=== PATIENT | female | born 1995 | race Asian ===

== ENCOUNTER → 2020-09-17 16:10 | Outpatient (CLI) | payer OTHER, SELFPAY ==
--- NOTE | 2020-09-17 16:17 | DI.ECHO.S_ITS ---
[place]---------+ [facility] +---------+ : : [address] : [address] : : : : [id number] : : : : Phone: [phone]+ Echocardiogram Report + + :Name: CHETAN TURNER Study Date: 09/17/2020 Height: 62 in : :[facility] ReadingLocation: Weight: 160 lb : : Gender: Female BSA: 1.7 m2 : :: 1995 Age: 25 yrs BP: 109/72 mmHg: :Reason For Study: ENCOUNTER FOR GENERAL ADULT MEDICAL : :EXAMINATION : :Ordering Physician: MELINA, : :SEDRICK Performed By: Carmina Mckinley : :Referring: SEDRICK SUMMERS : + + Interpretation Summary Left ventricular systolic function is normal with an estimated ejection fraction of 60 to 65% without focal wall motion abnormality. Left ventricular size and wall thickness are normal with probable normal diastolic function and normal filling pressures. The right ventricle is normal in size and systolic function. Right ventricular systolic pressure cannot be estimated but CVP is likely around 3 mmHg. Both atria are normal in size. There is no significant valvular abnormality. This is a normal echocardiogram. Procedure: A two-dimensional transthoracic echocardiogram with color flow and Doppler was performed. The study quality was technically adequate. There is no prior echocardiogram noted for this patient. The patient was in sinus rhythm with heart rates between 66-102 bpm during the exam. Left Ventricle: The left ventricle appears normal in size, wall thickness, and systolic function without any focal wall motion abnormalities. The ejection fraction is estimated to be 60-65%. Diastolic parameters suggest probable normal left ventricular diastolic function and normal filling pressures. Right Ventricle: The right ventricle is normal in size and function. Atria: Both atria are normal in size. There is no Doppler evidence for an interatrial shunt. Mitral Valve: The mitral valve is normal in structure and function. There is no mitral regurgitation noted. Aortic Valve: The aortic valve is trileaflet. The aortic valve opens well. There is no aortic valve stenosis. No aortic regurgitation is present. Tricuspid Valve: The tricuspid valve is normal in structure and function. There is trace tricuspid regurgitation. Pulmonary artery pressures cannot be estimated because of the lack of a measurable TR jet velocity but the IVC suggests a CVP of around 3 mmHg. Pulmonic Valve: The pulmonic valve leaflets are thin and pliable; valve motion is normal. There is no pulmonic valvular regurgitation. Great Vessels: The aortic root is normal size. The dimensions of the ascending aorta are normal. The IVC is of normal diameter and collapses greater than 50% with a sniff. This suggests a low right atrial pressure of 3 mm Hg. Pericardium/ Pleura There is no pericardial effusion. There is no pleural effusion. MMode/2D Measurements & Calculations LVIDd: 3.8 cm LVOT diam: 2.0 cm LVIDs: 2.5 cm Ao root diam: 2.4 cm FS: 34.6 % asc Aorta Diam: 2.3 cm IVSd: 0.71 cm Ao Arch Diam (Prox Trans): 2.5 cm LVPWd: 0.86 cm LV waggoner. diameter/BSA (cm/m^2): 2.2 LV sys. diameter/BSA (cm/m^2): 1.4 LA A2 area: 19.5 cm2 RA long axis: 4.5 cm LA A4 area: 16.9 cm2 RA area: 13.0 cm2 LA length (vol): 5.3 cm RA vol: 31.6 ml LA vol: 52.6 ml RA : 18.2 ml/m2 LA vol index: 30.2 ml/m2 IVC diam: 1.2 cm RVD1 (basal): 3.5 cm TAPSE: 1.7 cm Doppler Measurements & Calculations Ao V2 max: 136.6 cm/sec LVOT Max Eduard: 62.5 cm/sec Ao V2 mean: 89.4 cm/sec LV V1 max P.6 mmHg Ao max P.5 mmHg LV V1 VTI: 12.3 cm Ao mean P.7 mmHg FELA(I,D): 1.5 cm2 Ao V2 VTI: 26.5 cm FELA(V,D): 1.5 cm2 sev ratio: 0.46 FELA indexed to BSA (cm^2/m^2): 0.88 MV E max eduard: 83.6 cm/sec PA V2 max: 101.7 cm/sec MV A max eduard: 44.2 cm/sec PA V2 mean: 73.9 cm/sec MV E/A: 1.9 PA mean P.5 mmHg Med Peak E' Eduard: 14.8 cm/sec PA pr(Accel): 37.9 mmHg E/E' med: 5.7 Lat Peak E' Eduard: 21.4 cm/sec E/E' lat: 3.9 E/e' average: 4.8 MV dec time: 0.18 sec [facility] 40.4 ml Reading Physician:06:10 PM
== END ==
DX: Z00.00 Encounter for general adult medical examination without abnormal findings (principal)
CPT/HCPCS: 93306